=== PATIENT | female | born 1960 | race Caucasian/White ===

== ENCOUNTER 2019-04-29 14:48 | Observation (INO) ==
[2019-04-29] MEDS ORDERED: Ipratropium/Albuterol Neb 3 ML IH ONE (15:49)
--- NOTE | 2019-04-29 15:49 | Emergency Department Note ---
Disposition Clinical Impression: Acute exacerbation of chronic obstructive airways disease Disposition: Admitted As Inpatient Condition: Good Time of Disposition: 18:07 General Adult HPI - General Chief complaint: ED Shortness of Breath/Dyspnea Stated complaint: abnormal lab Time Seen by Provider: 04/29/19 15:09 Source: patient, family Limitations: no limitations Nursing Notes Reviewed: Yes Vital Signs Reviewed: Yes - History of Present Illness HPI Narrative: Female patient presenting to emergency department complaining of shortness of breath. States that she has not been feeling well for the past month. Does have a history of COPD as well as diabetes. Has been seen multiple times for this. States that she has been getting significantly more worse over the past 2 weeks. She is a smoker currently. She reports no productive sputum but an increased cough over she tries to take a deep breath. Patient was initially hypoxic on arrival here. She is requiring 2 L of oxygen to keep an actions saturation around 92%. She reports fever at home as high as 100.2. She does report occasional left-sided chest pain associated with a cough. It is not hurting at rest however she does have pain when she coughs. Pain Scale: 8 - Related Data Home Medications Medication Instructions Recorded Confirmed Unable To Obtain [Unable to Obtain] 04/29/19 04/29/19 Allergies Allergy/AdvReac Type Severity Reaction Status Date / Time ketorolac [From Toradol] Allergy Hives Verified 04/29/19 14:53 All systems ED: reviewed and negative except as stated. Review of Systems: As Per HPI Constitutional: Reports: fever. Denies: chills, weakness Respiratory: Reports: cough, dyspnea. Denies: sputum production Gastrointestinal: Denies: abdominal pain, nausea, vomiting, diarrhea Genitourinary: Denies: urgency, dysuria, frequency, hematuria Musculoskeletal: Denies: back pain, neck pain Integumentary: Denies: rash Neurological: Denies: headache, weakness, numbness, paresthesias Past Medical History - Past Medical History Attestation: Yes The following information was validated with the patient. Source: patient Medical history: Reports: COPD, diabetes, hepatitis, hypertension, liver disease Surgical history: Reports: cholecystectomy, hysterectomy, splenectomy Psychiatric history: Reports: no psych history - Social History Smoking Status: Current every day smoker Smokeless Tobacco Status: No Alcohol use: Reports: none Drug use: Reports: none, other Physical Exam - General Limitations: no limitations General appearance: alert, in no apparent distress - ENT ENT exam: normal exam, normal oropharynx, mucous membranes moist - Neck Neck exam: Present: normal inspection, full ROM, trachea midline - Chest Chest inspection: Present: normal inspection, symmetric chest wall rise - Respiratory Respiratory exam: Present: respiratory distress (Mildly tachypneic), wheezes (Expiratory), other (Decreased aeration). Absent: accessory muscle use - Cardiovascular Cardiovascular exam: Present: regular rate, normal rhythm, normal heart sounds - Abdominal Exam Abdominal exam: Present: soft, Non-Tender. Absent: tenderness, distention, guarding, rebound, rigidity, organomegaly, Ernst's sign, Rovsing's sign, tenderness at McBurney's Point - Extremities Exam Extremities exam: Present: normal inspection, full ROM, normal capillary refill. Absent: tenderness, pedal edema, calf tenderness - Back Exam Back exam: Present: normal inspection, full ROM. Absent: tenderness - Neurological Exam Neurological exam: Present: alert, oriented X3 - Psychiatric Psychiatric exam: Present: normal affect, normal mood - Skin Skin exam: Present: warm, dry, intact, normal color. Absent: rash, cyanosis, d iaphoresis Course Course Narrative: Patient does have a history of hepatitis C. This is consistent with her elevated liver enzymes and she states that this is why her pneumonia has been increased previously. Her ammonia here is 78. She reports it was 100 before. She does however have an elevated d-dimer. Secondary to her chest pain associated with the shortness of breath we will get a CTA of her chest at this time. Patient does appear to be mildly hypoxic with a COPD exacerbation. We will admit to the hospital for COPD exacerbation. We did start patient on azithromycin as well. She did receive breathing treatments and steroids. - Reevaluation(s) Reevaluation #1: No PE noted on the CTA. We will admit to the hospital for COPD exacerbation and hypoxia. Time: 17:58 Vital Signs Temperature 98.2 F 04/29/19 14:50 Pulse Rate 107 04/29/19 14:50 Respiratory Rate 20 04/29/19 14:50 Blood Pressure 133/72 04/29/19 14:50 O2 Sat by Pulse Oximetry 90 04/29/19 14:50 Temperature 98.0 F 04/30/19 10:45 Pulse Rate 88 04/30/19 10:45 Respiratory Rate 15 04/30/19 10:45 Blood Pressure 120/74 04/30/19 10:45 O2 Sat by Pulse Oximetry 92 04/30/19 10:48 Oxygen Delivery Oxygen Delivery Nasal Cannula Medical Decision Making - Medical Records Medical records reviewed: Yes I reviewed the patient's medical records. - Lab Data Lab results reviewed: Yes I reviewed the patient's lab results. Result diagrams: 04/30/19 07:20 04/30/19 07:20 Lab Results 04/29/19 04/29/19 04/29/19 Range/Units 15:35 15:35 15:35 WBC 16.2 H (4.3-11.1) K/mcL RBC 3.94 (3.82-4.97) M/mcL Hgb 12.9 (11.5-15.4) g/dL Hct 39.5 (35.3-44.9) % MCV 100.3 H (83.0-100.0) fL MCH 32.7 (28.0-33.3) pg MCHC 32.7 (31.6-35.5) g/dL RDW 15.2 H (11.5-14.5) % Plt Count 231 (140-400) K/mcL MPV 11.1 (9.4-12.4) fL Immature Gran % 0.3 (0-4) % Seg Neutrophils % 57.2 % Lymphocytes % 27.1 % Monocytes % 12.5 % Eosinophils % 1.7 % Basophils % 1.2 % Neutrophils # 9.3 H (1.6-8.9) K/mcL Lymphocytes # 4.4 (0.6-4.6) K/mcL Monocytes # 2.0 H (0.0-1.3) K/mcL Eosinophils # 0.3 (0.0-0.6) K/mcL Basophils # 0.2 (0.0-0.2) K/mcL D-Dimer (0-500) ng/mLFEU Sodium 137 (136-145) mEq/L Potassium 3.7 (3.5-5.1) mEq/L Chloride 106 (98-107) mEq/L Carbon Dioxide 28 (23-29) mEq/L BUN 11 (6-20) mg/dL Creatinine 0.64 (0.60-1.20) mg/dL Est GFR ( Amer) > 60 (> 60) Est GFR (Non-Af Amer) > 60 (> 60) BUN/Creatinine Ratio 17 (6-26) Glucose 186 H (70-105) mg/dL Est Mean Plasma Glucose mg/dl Hemoglobin A1c ( - 5.6) % Calculated Osmolality 288 (280-300) Lactic Acid (0.5-2.2) mmol/L Calcium 8.1 L (8.6-10.3) mg/dL Magnesium (1.6-2.6) mg/dL Total Bilirubin 0.9 (0.3-1.0) mg/dL AST 156 H (13-39) Units/L ALT 98 H (7-52) Units/L Alkaline Phosphatase 170 H (34-104) Units/L Ammonia 78 H (16-53) mcmol/L Troponin I < 0.03 (< 0.04) ng/mL Serum Total Protein 7.2 (6.4-8.9) g/dL Albumin 2.5 L (3.5-5.7) g/dL Globulin 4.7 H (2.4-3.5) g/dL Albumin/Globulin Ratio 0.5 L (1.1-2.2) Lipase 25 (11-82) Units/L Ethyl Alcohol (Less than 10) mg/dL 04/29/19 04/29/19 04/29/19 Range/Units 15:35 15:35 15:35 WBC (4.3-11.1) K/mcL RBC (3.82-4.97) M/mcL Hgb (11.5-15.4) g/dL Hct (35.3-44.9) % MCV (83.0-100.0) fL MCH (28.0-33.3) pg MCHC (31.6-35.5) g/dL RDW (11.5-14.5) % Plt Count (140-400) K/mcL MPV (9.4-12.4) fL Immature Gran % (0-4) % Seg Neutrophils % % Lymphocytes % % Monocytes % % Eosinophils % % Basophils % % Neutrophils # (1.6-8.9) K/mcL Lymphocytes # (0.6-4.6) K/mcL Monocytes # (0.0-1.3) K/mcL Eosinophils # (0.0-0.6) K/mcL Basophils # (0.0-0.2) K/mcL D-Dimer 969 H (0-500) ng/mLFEU Sodium (136-145) mEq/L Potassium (3.5-5.1) mEq/L Chloride (98-107) mEq/L Carbon Dioxide (23-29) mEq/L BUN (6-20) mg/dL Creatinine (0.60-1.20) mg/dL Est GFR ( Amer) (> 60) Est GFR (Non-Af Amer) (> 60) BUN/Creatinine Ratio (6-26) Glucose (70-105) mg/dL Est Mean Plasma Glucose mg/dl Hemoglobin A1c ( - 5.6) % Calculated Osmolality (280-300) Lactic Acid 1.7 (0.5-2.2) mmol/L Calcium (8.6-10.3) mg/dL Magnesium 1.8 (1.6-2.6) mg/dL Total Bilirubin (0.3-1.0) mg/dL AST (13-39) Units/L ALT (7-52) Units/L Alkaline Phosphatase (34-104) Units/L Ammonia (16-53) mcmol/L Troponin I (< 0.04) ng/mL Serum Total Protein (6.4-8.9) g/dL Albumin (3.5-5.7) g/dL Globulin (2.4-3.5) g/dL Albumin/Globulin Ratio (1.1-2.2) Lipase (11-82) Units/L Ethyl Alcohol < 10 (Less than 10) mg/dL 04/29/19 Range/Units 15:35 WBC (4.3-11.1) K/mcL RBC (3.82-4.97) M/mcL Hgb (11.5-15.4) g/dL Hct (35.3-44.9) % MCV (83.0-100.0) fL MCH (28.0-33.3) pg MCHC (31.6-35.5) g/dL RDW (11.5-14.5) % Plt Count (140-400) K/mcL MPV (9.4-12.4) fL Immature Gran % (0-4) % Seg Neutrophils % % Lymphocytes % % Monocytes % % Eosinophils % % Basophils % % Neutrophils # (1.6-8.9) K/mcL Lymphocytes # (0.6-4.6) K/mcL Monocytes # (0.0-1.3) K/mcL Eosinophils # (0.0-0.6) K/mcL Basophils # (0.0-0.2) K/mcL D-Dimer (0-500) ng/mLFEU Sodium (136-145) mEq/L Potassium (3.5-5.1) mEq/L Chloride (98-107) mEq/L Carbon Dioxide (23-29) mEq/L BUN (6-20) mg/dL Creatinine (0.60-1.20) mg/dL Est GFR ( Amer) (> 60) Est GFR (Non-Af Amer) (> 60) BUN/Creatinine Ratio (6-26) Glucose (70-105) mg/dL Est Mean Plasma Glucose 148 mg/dl Hemoglobin A1c 6.8 H ( - 5.6) % Calculated Osmolality (280-300) Lactic Acid (0.5-2.2) mmol/L Calcium (8.6-10.3) mg/dL Magnesium (1.6-2.6) mg/dL Total Bilirubin (0.3-1.0) mg/dL AST (13-39) Units/L ALT (7-52) Units/L Alkaline Phosphatase (34-104) Units/L Ammonia (16-53) mcmol/L Troponin I (< 0.04) ng/mL Serum Total Protein (6.4-8.9) g/dL Albumin (3.5-5.7) g/dL Globulin (2.4-3.5) g/dL Albumin/Globulin Ratio (1.1-2.2) Lipase (11-82) Units/L Ethyl Alcohol (Less than 10) mg/dL - Radiology Data Radiology results reviewed: Yes I reviewed the patient's radiology results. Chest X-Ray 04/29/19 15:16 IMPRESSION: No acute cardiopulmonary disease. D/ / 04/29/2019 16:19:31 Nima Chavarria MD / [facility]arter Interpreting Provider: Nima Chavarria MD Chest CTA 04/29/19 16:51 IMPRESSION: No evidence of pulmonary embolism or acute pulmonary abnormality. D/ / Gilbert Khalil MD / Gilbert Khalil MD Interpreting Provider: Gilbert Khalil MD Attestation Statement - Attestation Attestation: I have seen this patient with the resident physician, I have personally evaluated this patient. I had reviewed the chart and document dictation by the resident physician and aM in agreement with the information documented by the resident physician. Please see documentation by the resident physician for complete chart including past medical history, family medical history, review of systems, current history and physical and laboratory and imaging studies. I was present for all procedures, provided direct supervision for all procedures , was present for the entirety of all procedures and provided direct guidance during the procedures. Please see documentation by the resident physician for any procedures performed. I have reviewed all interpretations of EKGs, and reviewed all EKGs performed on patient's as well. I have also reviewed reports of imaging as provided by radiology.
[2019-04-29 15:54] LABS: Basophils # 0.2 K/mcL (0.0-0.2); Basophils % 1.2 %; Eosinophils # 0.3 K/mcL (0.0-0.6); Eosinophils % 1.7 %; Hematocrit 39.5 % (35.3-44.9); Hemoglobin 12.9 g/dL (11.5-15.4); Immature Granulocytes % 0.3 % (0-4); Lymphocytes # 4.4 K/mcL (0.6-4.6); Lymphocytes % 27.1 %; Mean Corpuscular HGB Conc 32.7 g/dL (31.6-35.5); Mean Corpuscular Hemoglobin 32.7 pg (28.0-33.3); Mean Corpuscular Volume 100.3 fL (83.0-100.0); Mean Platelet Volume 11.1 fL (9.4-12.4); Monocytes % 12.5 %; Neutrophils # 9.3 K/mcL (1.6-8.9); Platelet Count 231 K/mcL (140-400); Red Blood Count 3.94 M/mcL (3.82-4.97); Red Cell Distribution Width 15.2 % (11.5-14.5); Segmented Neutrophils % 57.2 %; White Blood Count 16.2 K/mcL (4.3-11.1)
[2019-04-29 16:07] LABS: Ethanol < 10 mg/dL (Less than 10); Magnesium 1.8 mg/dL (1.6-2.6)
[2019-04-29 16:10] LABS: Alanine Aminotransferase 98 Units/L (7-52); Albumin 2.5 g/dL (3.5-5.7); Albumin/Globulin Ratio 0.5 (1.1-2.2); Alkaline Phosphatase 170 Units/L (34-104); Aspartate Amino Transferase 156 Units/L (13-39); BUN/Creatinine Ratio 17 (6-26); Bilirubin,Total 0.9 mg/dL (0.3-1.0); Blood Urea Nitrogen 11 mg/dL (6-20); Calcium 8.1 mg/dL (8.6-10.3); Carbon Dioxide 28 mEq/L (23-29); Chloride 106 mEq/L (98-107); Globulin 4.7 g/dL (2.4-3.5); Glucose 186 mg/dL (70-105); Lipase 25 Units/L (11-82); Osmolality,Calculated 288 (280-300); Potassium 3.7 mEq/L (3.5-5.1); Sodium 137 mEq/L (136-145); Total Protein 7.2 g/dL (6.4-8.9); Troponin I < 0.03 ng/mL (< 0.04); eGFR For African Americans > 60 (> 60); eGFR For Non-African Americans > 60 (> 60)
[2019-04-29] MEDS ORDERED: methylPREDNISolone 125 MG/2 ML VIAL IVP ONE (16:38)
[2019-04-29] MEDS ORDERED: Azithromycin 500 MG in D5% in Water 250 ML IVPB ONE (16:38)
--- NOTE | 2019-04-29 16:44 | Emergency Department Note ---
Disposition Clinical Impression: Acute exacerbation of chronic obstructive airways disease Disposition: Admitted As Inpatient Condition: Good Referrals: Lorie Burk CNP [Primary Care Provider] - Forms: ED Satisfaction Letter Time of Disposition: 18:04 General Adult HPI - General Chief complaint: ED Shortness of Breath/Dyspnea Stated complaint: abnormal lab Time Seen by Provider: 04/29/19 15:09 Source: patient, family Limitations: no limitations - History of Present Illness Pain Scale: 8 - Related Data Home Medications Medication Instructions Recorded Confirmed Unable To Obtain [Unable to Obtain] 04/29/19 04/29/19 Allergies Allergy/AdvReac Type Severity Reaction Status Date / Time ketorolac [From Toradol] Allergy Hives Verified 04/29/19 14:53 Past Medical History - Past Medical History Medical history: Reports: COPD, diabetes, hepatitis, hypertension, liver disease Surgical history: Reports: cholecystectomy, hysterectomy, splenectomy Psychiatric history: Reports: no psych history - Social History Smoking Status: Current every day smoker Smokeless Tobacco Status: No Alcohol use: Reports: none Drug use: Reports: none, other Physical Exam - General Limitations: no limitations General appearance: alert, in no apparent distress Course Vital Signs Temperature 98.2 F 04/29/19 14:50 Pulse Rate 107 04/29/19 14:50 Respiratory Rate 20 04/29/19 14:50 Blood Pressure 133/72 04/29/19 14:50 O2 Sat by Pulse Oximetry 90 04/29/19 14:50 Temperature 98.2 F 04/29/19 14:50 Pulse Rate 95 04/29/19 17:00 Respiratory Rate 12 04/29/19 17:00 Blood Pressure 132/66 04/29/19 17:00 O2 Sat by Pulse Oximetry 95 04/29/19 17:00 Oxygen Delivery Oxygen Delivery Nasal Cannula Medical Decision Making - Lab Data Result diagrams: 04/29/19 15:35 04/29/19 15:35 Lab Results 04/29/19 04/29/19 04/29/19 Range/Units 15:35 15:35 15:35 WBC 16.2 H (4.3-11.1) K/mcL RBC 3.94 (3.82-4.97) M/mcL Hgb 12.9 (11.5-15.4) g/dL Hct 39.5 (35.3-44.9) % MCV 100.3 H (83.0-100.0) fL MCH 32.7 (28.0-33.3) pg MCHC 32.7 (31.6-35.5) g/dL RDW 15.2 H (11.5-14.5) % Plt Count 231 (140-400) K/mcL MPV 11.1 (9.4-12.4) fL Immature Gran % 0.3 (0-4) % Seg Neutrophils % 57.2 % Lymphocytes % 27.1 % Monocytes % 12.5 % Eosinophils % 1.7 % Basophils % 1.2 % Neutrophils # 9.3 H (1.6-8.9) K/mcL Lymphocytes # 4.4 (0.6-4.6) K/mcL Monocytes # 2.0 H (0.0-1.3) K/mcL Eosinophils # 0.3 (0.0-0.6) K/mcL Basophils # 0.2 (0.0-0.2) K/mcL D-Dimer (0-500) ng/mLFEU Sodium 137 (136-145) mEq/L Potassium 3.7 (3.5-5.1) mEq/L Chloride 106 (98-107) mEq/L Carbon Dioxide 28 (23-29) mEq/L BUN 11 (6-20) mg/dL Creatinine 0.64 (0.60-1.20) mg/dL Est GFR ( Amer) > 60 (> 60) Est GFR (Non-Af Amer) > 60 (> 60) BUN/Creatinine Ratio 17 (6-26) Glucose 186 H (70-105) mg/dL Calculated Osmolality 288 (280-300) Lactic Acid (0.5-2.2) mmol/L Calcium 8.1 L (8.6-10.3) mg/dL Magnesium (1.6-2.6) mg/dL Total Bilirubin 0.9 (0.3-1.0) mg/dL AST 156 H (13-39) Units/L ALT 98 H (7-52) Units/L Alkaline Phosphatase 170 H (34-104) Units/L Ammonia 78 H (16-53) mcmol/L Troponin I < 0.03 (< 0.04) ng/mL Serum Total Protein 7.2 (6.4-8.9) g/dL Albumin 2.5 L (3.5-5.7) g/dL Globulin 4.7 H (2.4-3.5) g/dL Albumin/Globulin Ratio 0.5 L (1.1-2.2) Lipase 25 (11-82) Units/L Ethyl Alcohol (Less than 10) mg/dL 04/29/19 04/29/19 04/29/19 Range/Units 15:35 15:35 15:35 WBC (4.3-11.1) K/mcL RBC (3.82-4.97) M/mcL Hgb (11.5-15.4) g/dL Hct (35.3-44.9) % MCV (83.0-100.0) fL MCH (28.0-33.3) pg MCHC (31.6-35.5) g/dL RDW (11.5-14.5) % Plt Count (140-400) K/mcL MPV (9.4-12.4) fL Immature Gran % (0-4) % Seg Neutrophils % % Lymphocytes % % Monocytes % % Eosinophils % % Basophils % % Neutrophils # (1.6-8.9) K/mcL Lymphocytes # (0.6-4.6) K/mcL Monocytes # (0.0-1.3) K/mcL Eosinophils # (0.0-0.6) K/mcL Basophils # (0.0-0.2) K/mcL D-Dimer 969 H (0-500) ng/mLFEU Sodium (136-145) mEq/L Potassium (3.5-5.1) mEq/L Chloride (98-107) mEq/L Carbon Dioxide (23-29) mEq/L BUN (6-20) mg/dL Creatinine (0.60-1.20) mg/dL Est GFR ( Amer) (> 60) Est GFR (Non-Af Amer) (> 60) BUN/Creatinine Ratio (6-26) Glucose (70-105) mg/dL Calculated Osmolality (280-300) Lactic Acid 1.7 (0.5-2.2) mmol/L Calcium (8.6-10.3) mg/dL Magnesium 1.8 (1.6-2.6) mg/dL Total Bilirubin (0.3-1.0) mg/dL AST (13-39) Units/L ALT (7-52) Units/L Alkaline Phosphatase (34-104) Units/L Ammonia (16-53) mcmol/L Troponin I (< 0.04) ng/mL Serum Total Protein (6.4-8.9) g/dL Albumin (3.5-5.7) g/dL Globulin (2.4-3.5) g/dL Albumin/Globulin Ratio (1.1-2.2) Lipase (11-82) Units/L Ethyl Alcohol < 10 (Less than 10) mg/dL Attestation Statement - Attestation Attestation: I have seen this patient with the resident physician, I have personally evaluated this patient. I had reviewed the chart and document dictation by the resident physician and aM in agreement with the information documented by the resident physician. Please see documentation by the resident physician for complete chart including past medical history, family medical history, review of systems, current history and physical and laboratory and imaging studies. I was present for all procedures, provided direct supervision for all procedures, was present for the entirety of all procedures and provided direct guidance during the procedures. Please see documentation by the resident physician for any procedures performed. I have reviewed all interpretations of EKGs, and reviewed all EKGs performed on patient's as well. I have also reviewed reports of imaging as provided by radiology. Patient states that she was sent in by her doctor for further evaluation of high ammonia level as well as possible pneumonia. The patient states she has had a cough with some sputum production with some increasing shortness of breath. She states she does have left sided posterior rib pain when she coughs does not have this with normal breathing. She does have a history of COPD states that it feels like her inhaler supple little bit but not significant only. She has had no documented fever but some subjective chills. She denies headache neck pain or jaw pain she denies anterior chest pain she denies significant abdominal pain nausea or vomiting. She denies urinary symptoms denies black or bloody stool or diarrhea. She states that she was recently started on Lasix for some lower extremity edema which has improved. She is a history of hepatitis C and reports that her ammonia level was recently elevated as part of why she was being sent here. She states that she is supposed to also be following up with GI, she is not currently receiving any treatment for this, states that her numbers had been relatively stable for quite a while. She is not on anything for high ammonia. She denies any focal numbness or weakness or confusion she states she just has been fatigued recently. EKG was performed which was a normal sinus rhythm, sinus tachycardia, nonspecific abnormality in the inferior leads with borderline ST depression downsloping in nature, there was no old EKG available for comparison, no evidence of abnormal intervals. No evidence of Wellens syndrome or Brugada pattern. Attempted to contact [facility], where the patient reports that she has had prior EKGs and last year they were told she had an abnormal EKG and thought she might be having a heart attack at that time. The patient states that she did not actually have a heart attack. The patient states that she has never had a EKG at this facility. Chest x-ray as interpreted by radiology showed no acute findings. Basic laboratory studies demonstrated leukocytosis. Ammonia level was 78 decreased from 100 she does not have asterixis flap nor evidence of altered mental status this is spontaneously decreasing, do not feel that there is emergent need to treat this in the ER. Renal panel within acceptable limits. Cardiac enzymes negative. LFTs demonstrated very mild transaminitis no hyperbilirubinemia. Magnesium within acceptable limits. Lactate within acceptable limits. On physical exam she had very diminished breath sounds in her lungs with wheezes, she is given steroids and breathing treatments. Secondary to her leukocytosis, with increased cough and sputum production, and a history of COPD, she was started on antibiotics as well with Zithromax for COPD exacerbation for both treatment for possible pneumonia/walking pneumonia as well as for anti-inflammatory effects. Secondary to patient's tachycardia, chest pain with cough, without chest x-ray findings of pneumonia, a d-dimer was also ordered, this was elevated at 969, therefore a CT PE protocol was ordered. The patient will be admitted to the hospital for further evaluation and management of acute COPD exacerbation with hypoxia with symptoms suggestive of acute bronchitis will undergo a CT scan to rule out pulmonary embolism as well. CT PE protocol showed no acute findings Patient was admitted to the hospital for further evaluation and management.
[2019-04-29] MEDS ORDERED: Isovue-370 500 ML BOTTLE IVP ONE (16:51)
[2019-04-29] MEDS ORDERED: Ondansetron 4 MG/2 ML VIAL IVP ONE (16:58)
[2019-04-29] MEDS ORDERED: Azithromycin 500 MG in D5% in Water 250 ML IVPB SCH (17:00)
[2019-04-29] MEDS ORDERED: Naloxone 0.4 MG/ML INJ IVP PRN (18:08)
[2019-04-29] MEDS ORDERED: cefTRIAXone 1,000 MG in Water for inj. (sterile) 10 ML IVP SCH (18:30)
--- NOTE | 2019-04-29 18:50 | Internal Med History&Physical ---
Date of Encounter: 04/29/19 Time of Encounter: 18:00 Internal Medicine - H&P: HPI Chief complaint: Coughing and shortness of breath of a couple of days History of present illness: Ms. Crenshaw is a 58 year old female with pmh of COPD, tobacco abuse, CHF, hepatitis presenting with complaints of shortness of breath and wheezing of a couple of days duration. Patient says she is a current smoker and last cigarette was around noon today. She uses inhalers as needed for shortness of breath. She had a pneumonia last April and claim she hasn't really felt completely better s moses then. She complains of a dry cough for about 1 week duration and wheezing of about 2 weeks duration. She also says she had a fever of 102 at home. She called her PCP who recommended she come to the ER. She denies any acute symptoms such as abdominal pain, nausea or vomiting. She complains of some lower extremity swelling In the Er, she was given breathing treatments and steroids and she is being admitted for further management Past Med Surg Social Fam HX - Past Medical History Medical history: COPD, diabetes, hepatitis, hypertension, liver disease Additional medical history: Hepatitis C Psychiatric history: no psych history - Past Surgical History Surgical History: cholecystectomy, hysterectomy, splenectomy - Social History Smoking Status: Current every day smoker Smokeless Tobacco Status: No Alcohol use: none Drug use: none, other Internal Medicine - H&P: Meds Unable To Obtain [Unable to Obtain] 04/29/19 [History] Allergy/AdvReac Type Severity Reaction Status Date / Time ketorolac [From Toradol] Allergy Hives Verified 04/29/19 14:53 All Systems PM: A 10-system review of systems was performed and is negative for pertinent findings except as documented above in the HPI. - Constitutional Constitutional: no chills, no fever(s), no night sweats - EENT Eyes: no change in vision, no discharge, no pain, no photophobia Ears: no ear discharge, no ear pain, no tinnitus Nose, mouth and throat: no dysphagia, no nasal discharge, no neck pain, no sore throat - Cardiovascular Cardiovascular ROS IM: dyspnea, dyspnea on exertion, no chest pain, no diaphoresis, no lightheadedness, no palpitations, no syncope - Respiratory Respiratory: cough, dyspnea, no wheezing, no excessive phlegm production - Gastrointestinal Gastrointestinal: no abdominal pain, no diarrhea, no hematemesis, no hematochezia, no melena, no nausea, no vomiting - Genitourinary Genitourinary: no change in urinary stream, no dysuria, no flank pain, no hem aturia - Musculoskeletal Musculoskeletal ROS IM: no numbness, no tingling - Integumentary Integumentary IM: no rash, no unusual bruising - Neurological Neurological ROS: no confusion, no convulsions, no focal weakness, no numbness, no tingling, no tremor(s) - Hematologic/Lymphatic Hematologic/Lymphatic: no easy bruising - Constitutional Vitals: Temp Pulse Resp BP Pulse Ox 98.2 F 95 12 132/66 95 04/29/19 14:50 04/29/19 17:00 04/29/19 17:00 04/29/19 17:00 04/29/19 17:00 Exam: NAD - Head Head exam: Present: atraumatic, normocephalic - Eye Eye exam: Present: PERRL, conjuntiva pink, sclera anicteric Pupils: Present: PERRL - Neck Neck exam general surgery: Present: supple, trachea midline. Absent: lymphad enopathy - Respiratory Respiratory exam: Present: decreased breath sounds. Absent: accessory muscle use, rales, rhonchi, wheezes - Cardiovascular Cardiovascular exam: Present: RRR, +S1, +S2. Absent: diastolic murmur, gallop, rubs, systolic murmur - GI/Abdominal GI/Abdominal exam: Present: normal bowel sounds, soft, no peritoneal signs. Absent: distended, tenderness - Extremities Exam Extremities exam: Present: pedal edema, warm, radial pulses palpable and symmetrical. Absent: calf tenderness, cyanotic - Neurological Exam Neurological exam: Present: CN II-XII intact, oriented X3, no focal deficits. Absent: pronater drift, facial droop, speech deficit - Skin Skin exam: Present: dry, intact Internal Med - H&P Results - Labs CBC & Chem 7: 04/29/19 15:35 04/29/19 15:35 Labs: Short CBC 04/29/19 Range/Units 15:35 WBC 16.2 H (4.3-11.1) K/mcL Hgb 12.9 (11.5-15.4) g/dL Hct 39.5 (35.3-44.9) % Plt Count 231 (140-400) K/mcL Neutrophils # 9.3 H (1.6-8.9) K/mcL BMP 04/29/19 15:35 Sodium 137 Potassium 3.7 Chloride 106 Carbon Dioxide 28 BUN 11 Creatinine 0.64 Glucose 186 H Calcium 8.1 L Cardiac Enzymes 04/29/19 Range/Units 15:35 Troponin I < 0.03 (< 0.04) ng/mL Liver Function 04/29/19 Range/Units 15:35 Total Bilirubin 0.9 (0.3-1.0) mg/dL AST 156 H (13-39) Units/L ALT 98 H (7-52) Units/L Alkaline Phosphatase 170 H (34-104) Units/L Albumin 2.5 L (3.5-5.7) g/dL - Impressions ITS Impressions Chest X-Ray 04/29/19 15:16 IMPRESSION: No acute cardiopulmonary disease. D/ / 04/29/2019 16:19:31 Nima Chavarria MD / veronica Interpreting Provider: Nima Chavarria MD Chest CTA 04/29/19 16:51 IMPRESSION: No evidence of pulmonary embolism or acute pulmonary abnormality. D/ / Gilbert Khalil MD / Gilbert Khalil MD Interpreting Provider: Gilbert Khalil MD - Assessment and Plan (1) Acute exacerbation of chronic obstructive airways disease Current Visit: Yes Status: Acute Assessment and plan: Pt comes in with wheezing and cough with tobacco abuse Continue on nebs, steroids and antibiotics (2) Congestive heart failure Current Visit: Yes Status: Acute Assessment and plan: Pt has lower extremity swelling. Start on lasix Obtain 2D echo Qualifiers: Qualified Code(s): I50.9 - Heart failure, unspecified (3) Diabetes mellitus Current Visit: Yes Status: Acute Assessment and plan: Continue insulin and monitor fingersticks Qualifiers: Qualified Code(s): E11.9 - Type 2 diabetes mellitus without complications (4) Transaminitis Current Visit: Yes Status: Acute Assessment and plan: Unclear etiology. reports hx of hepatitis C OBtain liver ultrasound (5) Shingles Current Visit: Yes Status: Acute Assessment and plan: Pt has dermatomal distribution pain on left chest Started on valtrex Qualifiers: Qualified Code(s): B02.9 - Zoster without complications (6) DVT prophylaxis Current Visit: Yes Status: Acute Assessment and plan: Heparin sc - Time Spent With Patient Total time spent is greater than 50% in coordination of care (as documented) at patient's floor/unit and/or counseling patient:
[2019-04-29 19:08] LABS: Bilirubin,Urine Negative (Negative); Blood,Urine Negative (Negative); Clarity,Urine Clear (Clear); Color,Urine Yellow (Yellow); Glucose,Urine (UA) Normal (Normal); Ketones,Urine Negative (Negative); Leukocyte Esterase,Urine Negative (Negative); Nitrite,Urine Negative (Negative); PH,Urine 6.5 pH Units (5.0-8.0); Protein,Urine Negative (Neg-Trace); Specific Gravity,Urine > 1.030 (1.010-1.025)
[2019-04-29] MEDS ORDERED: *HR* Dextrose 50 % in Water (Syg) 50 ML SYRINGE IVP PRN (19:12)
[2019-04-29] MEDS ORDERED: D5% in Water 1,000 ML IVC PRN (19:12)
[2019-04-29] MEDS ORDERED: Dextrose Gel 15 GM/37.5 ML TUBE PO PRN ×2 (19:12)
[2019-04-29] MEDS: Ipratropium/Albuterol Neb 3 ML IH SCH ×2 (19:51→23:12)
[2019-04-29] MEDS: Budesonide/Formoterol 160/4.5 1 PUFF INH IH SCH (19:51)
[2019-04-29 20:44] LABS: Estimated Average Glucose 148 mg/dl
[2019-04-29] MEDS: Insulin LISPRO 300 UNITS/3 ML VIAL SQ SCH (22:03)
[2019-04-29] MEDS: valACYclovir 500 MG TABLET PO SCH (22:03)
[2019-04-29] MEDS: *HR* Heparin 5,000 UNIT/ML VIAL SQ SCH (22:03)
[2019-04-29] MEDS: Furosemide 20 MG/2 ML VIAL IVP SCH (22:03)
[2019-04-29] MEDS: Acetaminophen 325 MG TABLET PO PRN (22:05)
[2019-04-30] MEDS: MethylPREDNISolone 40 MG/ML VIAL IVP SCH ×3 (00:57→16:51)
[2019-04-30] MEDS: Ipratropium/Albuterol Neb 3 ML IH SCH ×3 (03:15→11:10)
--- NOTE | 2019-04-30 07:37 | Internal Med Progress Note ---
Hospitalist Progress Note - Encounter Date of Encounter: 04/30/19 Time of Encounter: 07:30 - Subjective Interval History: No acute events overnight - Exam Vitals: Temp Pulse Resp BP Pulse Ox 98.0 F 92 16 122/67 90 04/30/19 07:11 04/30/19 07:11 04/30/19 07:11 04/30/19 07:11 04/30/19 07:11 Exam: Gen.NAD CVS. S1 S2 WNL Resp. mild wheezes GI. SOft, NT, ND, +BS Ext. 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 Start on lasix Obtain 2D echo (3) Diabetes mellitus Current Visit: Yes Status: Acute Assessment and Plan: Continue insulin and monitor fingersticks (4) Transaminitis Current Visit: Yes Status: Acute Assessment and Plan: Unclear etiology. reports hx of hepatitis C OBtain liver ultrasound (5) Shingles Current Visit: Yes Status: Acute Assessment and Plan: Pt has dermatomal distribution pain on left chest Started on valtrex (6) DVT prophylaxis Current Visit: Yes Status: Acute Assessment and Plan: Heparin sc - Time Spent with Patient Total time spent is greater than 50% in coordination of care (as documented) at patient's floor/unit and/or counseling patient: Internal Medicine: Result - Labs CBC & Chem 7: 04/30/19 07:20 04/30/19 07:20 Labs: Short CBC 04/29/19 Range/Units 15:35 WBC 16.2 H (4.3-11.1) K/mcL Hgb 12.9 (11.5-15.4) g/dL Hct 39.5 (35.3-44.9) % Plt Count 231 (140-400) K/mcL Neutrophils # 9.3 H (1.6-8.9) K/mcL BMP 04/29/19 15:35 Sodium 137 Potassium 3.7 Chloride 106 Carbon Dioxide 28 BUN 11 Creatinine 0.64 Glucose 186 H Calcium 8.1 L Cardiac Enzymes 04/29/19 04/29/19 04/30/19 Range/Units 15:35 21:28 00:04 Troponin I < 0.03 < 0.03 < 0.03 (< 0.04) ng/mL Liver Function 04/29/19 Range/Units 15:35 Total Bilirubin 0.9 (0.3-1.0) mg/dL AST 156 H (13-39) Units/L ALT 98 H (7-52) Units/L Alkaline Phosphatase 170 H (34-104) Units/L Albumin 2.5 L (3.5-5.7) g/dL Urine 04/29/19 Range/Units 18:47 Urine Color Yellow (Yellow) Urine Clarity Clear (Clear) Urine pH 6.5 (5.0-8.0) pH Units Ur Specific Cochran > 1.030 H (1.010-1.025) Urine Protein Negative (Neg-Trace) mg/dL Urine Glucose (UA) Normal (Normal) mg/dL - ABG Interpretation ABG results: PT/INR, D-dimer 969 ng/mLFEU (0-500) H 04/29/19 15:35 - Impressions Impressions Chest X-Ray 04/29/19 15:16 IMPRESSION: No acute cardiopulmonary disease. D/ / 04/29/2019 16:19:31 Nima Chavarria MD / veronica Interpreting Provider: Nima Chavarria MD Chest CTA 04/29/19 16:51 IMPRESSION: No evidence of pulmonary embolism or acute pulmonary abnormality. D/ / Gilbert Khalli MD / Gilbert Khalil MD Interpreting Provider: Gilbert Khalil MD Abdomen Ultrasound 04/29/19 19:08 IMPRESSION: 1. Limited assessment of hepatic parenchyma on ultrasound examination due to patient's body habitus and bowel gas. However, comparing to chest CT performed on 04/29/2019, findings are concerning for hepatic cirrhosis. Small amount of ascites was seen on same-day chest CT (not seen on current ultrasound). Follow-up MRI liver protocol examination may be obtained for further evaluation. 2. Status post cholecystectomy, with mild prominence of extrahepatic bowel duct. Correlate with LFTs. 3. No evidence of right hydronephrosis. The right kidney appears grossly unremarkable. D/ / 04/29/2019 22:28:30 Omar Cantu MD / veronica Interpreting Provider: Omar Cantu MD Consult Discharge Plan - Plan Referrals: Lorie Burk, PARTY PLAN SALES UNIT SALES LEADER [Primary Care Provider] - (2) Congestive heart failure Qualifiers: Qualified Code(s): I50.9 - Heart failure, unspecified (3) Diabetes mellitus Qualifiers: Qualified Code(s): E11.9 - Type 2 diabetes mellitus without complications (5) Shingles Qualifiers: Qualified Code(s): B02.9 - Zoster without complications
[2019-04-30] MEDS ORDERED: Perflutren Lipid Microsphere 1.3 ML in 0.9 % Sodium Chloride 8.7 ML IVP ONE (07:51)
[2019-04-30 07:59] LABS: BUN/Creatinine Ratio 27 (6-26); Blood Urea Nitrogen 20 mg/dL (6-20); Calcium 8.4 mg/dL (8.6-10.3); Carbon Dioxide 29 mEq/L (23-29); Chloride 103 mEq/L (98-107); Glucose 329 mg/dL (70-105); Osmolality,Calculated 297 (280-300); Phosphorous 2.7 mg/dL (2.7-4.5); Potassium 4.8 mEq/L (3.5-5.1); Sodium 136 mEq/L (136-145); eGFR For African Americans > 60 (> 60); eGFR For Non-African Americans > 60 (> 60)
[2019-04-30 08:59] LABS: Basophils % 0.2 %; Hematocrit 42.5 % (35.3-44.9); Immature Granulocytes % 0.4 % (0-4); Lymphocytes # 1.9 K/mcL (0.6-4.6); Lymphocytes % 15.7 %; Mean Corpuscular HGB Conc 32.9 g/dL (31.6-35.5); Mean Corpuscular Hemoglobin 33.1 pg (28.0-33.3); Mean Corpuscular Volume 100.5 fL (83.0-100.0); Mean Platelet Volume 11.5 fL (9.4-12.4); Monocytes # 0.3 K/mcL (0.0-1.3); Monocytes % 2.4 %; Neutrophils # 9.8 K/mcL (1.6-8.9); Platelet Count 242 K/mcL (140-400); Red Blood Count 4.23 M/mcL (3.82-4.97); Segmented Neutrophils % 81.3 %
[2019-04-30] MEDS: Furosemide 20 MG/2 ML VIAL IVP SCH ×2 (09:32→16:51)
[2019-04-30] MEDS: Insulin LISPRO 300 UNITS/3 ML VIAL SQ SCH ×3 (09:32→16:52)
[2019-04-30] MEDS: valACYclovir 500 MG TABLET PO SCH ×3 (09:32→21:15)
[2019-04-30] MEDS: *HR* Heparin 5,000 UNIT/ML VIAL SQ SCH ×2 (09:32→16:43)
[2019-04-30] MEDS: Acetaminophen 325 MG TABLET PO PRN ×2 (09:36→18:23)
[2019-04-30 09:50] LABS: Albumin 2.8 g/dL (3.5-5.7); Albumin/Globulin Ratio 0.5 (1.1-2.2); Bilirubin,Direct 0.4 mg/dL (0.0-0.2); Bilirubin,Indirect 0.6 mg/dL (0.0-1.2); Globulin 5.6 g/dL (2.4-3.5); Total Protein 8.4 g/dL (6.4-8.9)
[2019-04-30] MEDS: Azithromycin 250 MG TABLET PO SCH (10:01)
[2019-04-30 10:10] LABS: Hepatitis B Surface Antigen Nonreactive (Nonreactive)
[2019-04-30 10:42] LABS: Hepatitis A Antibody IgM Nonreactive (Nonreactive)
[2019-04-30] MEDS: Budesonide/Formoterol 160/4.5 1 PUFF INH IH SCH ×2 (11:10→19:31)
[2019-04-30 12:41] LABS: Hepatitis B Core IgM Reactive (Nonreactive)
[2019-04-30] MEDS ORDERED: Ipratropium/Albuterol Neb 3 ML IH PRN (13:33)
--- NOTE | 2019-04-30 13:55 | Electrocardiograph Report ---
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
[2019-04-30 13:59] LABS: Hepatitis C Virus Antibody Reactive (Nonreactive)
[2019-04-30] MEDS: Gabapentin 400 MG CAPSULE PO SCH ×2 (15:12→21:15)
[2019-04-30] MEDS: traMADol 50 MG TABLET PO PRN ×2 (15:12→21:17)
[2019-04-30] MEDS ORDERED: Azithromycin 500 MG in D5% in Water 250 ML IVPB SCH (17:00)
[2019-04-30 18:06] LABS: Adenovirus Not Detected (Not Detect); Bordetella Pertussis Not Detected (Not Detect); Chlamydophila pneumoniae Not Detected (Not Detect); Coronavirus 229E Not Detected (Not Detect); Coronavirus HKU1 Not Detected (Not Detect); Coronavirus NL63 Not Detected (Not Detect); Coronavirus OC43 Not Detected (Not Detect); Human Metapneumovirus Not Detected (Not Detect); Human Rhinovirus/Enterovirus Not Detected (Not Detect); Influenza A Subtype 2009 H1 Not Detected (Not Detect); Influenza A Untypeable Not Detected (Not Detect); Influenza B Not Detected (Not Detect); Mycoplasma pneumoniae Not Detected (Not Detect); Parainfluenza Virus 1 Not Detected (Not Detect); Parainfluenza Virus 2 Not Detected (Not Detect); Parainfluenza Virus 3 Not Detected (Not Detect); Parainfluenza Virus 4 Not Detected (Not Detect); Respiratory Syncytial Virus Not Detected (Not Detect)
[2019-04-30 18:16] LABS: ABG Base Excess 5 mEq/L (-2 to 3); ABG HCO3 32 mEq/L (21-27); ABG Oxygen Saturation 90 % (95-98); ABG PCO2 54 mmHg (35-45); ABG PH 7.38 pH Units (7.32-7.45); ABG PO2 61 mmHg (85-104); ABG TCO2 34 mEq/L (20-26)
[2019-05-01] MEDS: MethylPREDNISolone 40 MG/ML VIAL IVP SCH (01:09)
[2019-05-01] MEDS: traMADol 50 MG TABLET PO PRN (03:22)
[2019-05-01] MEDS: Nicotine 14 MG PATCH.TD24 TD SCH ×2 (05:53→09:06)
[2019-05-01] MEDS: *HR* Heparin 5,000 UNIT/ML VIAL SQ SCH (05:54)
[2019-05-01 06:44] LABS: Basophils % 0.1 %
[2019-05-01 06:46] LABS: Hematocrit 40.7 % (35.3-44.9); Hemoglobin 13.6 g/dL (11.5-15.4); Immature Granulocytes % 1.1 % (0-4); Lymphocytes # 2.5 K/mcL (0.6-4.6); Lymphocytes % 9.2 %; Mean Corpuscular HGB Conc 33.4 g/dL (31.6-35.5); Mean Corpuscular Hemoglobin 32.8 pg (28.0-33.3); Mean Corpuscular Volume 98.1 fL (83.0-100.0); Mean Platelet Volume 11.6 fL (9.4-12.4); Monocytes # 2.1 K/mcL (0.0-1.3); Monocytes % 7.5 %; Neutrophils # 22.7 K/mcL (1.6-8.9); Platelet Count 261 K/mcL (140-400); Red Blood Count 4.15 M/mcL (3.82-4.97); Red Cell Distribution Width 14.8 % (11.5-14.5); Segmented Neutrophils % 82.1 %; White Blood Count 27.6 K/mcL (4.3-11.1)
[2019-05-01 07:05] LABS: BUN/Creatinine Ratio 35 (6-26); Blood Urea Nitrogen 25 mg/dL (6-20); Calcium 8.3 mg/dL (8.6-10.3); Carbon Dioxide 29 mEq/L (23-29); Chloride 99 mEq/L (98-107); Glucose 346 mg/dL (70-105); Magnesium 2.1 mg/dL (1.6-2.6); Osmolality,Calculated 298 (280-300); Phosphorous 3.5 mg/dL (2.7-4.5); Potassium 4.6 mEq/L (3.5-5.1); Sodium 135 mEq/L (136-145); eGFR For African Americans > 60 (> 60); eGFR For Non-African Americans > 60 (> 60)
[2019-05-01 07:18] LABS: Platelet Estimate Normal (Normal)
[2019-05-01] MEDS: Budesonide/Formoterol 160/4.5 1 PUFF INH IH SCH (07:26)
[2019-05-01] MEDS ORDERED: Acetaminophen 325 MG TABLET PO PRN (08:41)
[2019-05-01] MEDS ORDERED: traMADol 50 MG TABLET PO PRN (08:41)
[2019-05-01] MEDS ORDERED: predniSONE 20 MG TABLET PO SCH (09:00)
[2019-05-01] MEDS: valACYclovir 500 MG TABLET PO SCH (09:05)
[2019-05-01] MEDS: Azithromycin 250 MG TABLET PO SCH (09:05)
[2019-05-01] MEDS: Gabapentin 400 MG CAPSULE PO SCH (09:06)
[2019-05-01] MEDS: Furosemide 20 MG/2 ML VIAL IVP SCH (09:06)
[2019-05-01] MEDS: Insulin LISPRO 300 UNITS/3 ML VIAL SQ SCH ×2 (09:07→12:10)
[2019-05-01 11:06] VITALS: BP 169/76
--- NOTE | 2019-05-01 12:30 | Gastroenterology Consult Note ---
<Mary Rowe - Last Filed: 05/01/19 12:27> Date of Encounter: 05/01/19 Time of Encounter: 12:15 - Assessment and plan (1) Transaminitis Status: Acute Assessment and plan: No s/sx of jaundice, she denies any abdominal pain, nausea, or vomiting. Transaminitis due to acute hep B and chronic hep c. She is being worked up as an outpatient for antiviral treatment. She has an appointment with Dr Zuluaga on 05/07/19. She is advised to keep this appointment. OK to discharge home per GI standpoint at this time. - Time Spent With Patient Total time spent is greater than 50% in coordination of care (as documented) at patient's floor/unit and/or counseling patient: GI History of Present Illness - Data of Consult Patient: known to practice within the last 3 years Consult date: 05/01/19 Requesting Physician: Lillian Duran - Consult Narrative Reason for consult: hep b and hep c History of present illness: Ms. Crenshaw is a 58 year old female with pmh of COPD, tobacco abuse, CHF, and hepatitis B and C. She presented with complaints of shortness of breath and wheezing of a couple of days duration. Patient says she is a current smoker. She complains of a dry cough for about 1 week duration and wheezing of about 2 weeks duration. She also says she had a fever of 102 at home. She called her PCP who recommended she come to the ER. She denies any acute symptoms such as abdominal pain, nausea or vomiting. She complains of some lower extremity swelling. In the Er, she was given breathing treatments and steroids and she is being admitted for further management. Lab workup showed elevated LFTs which are trending down. She does have a positive hep B core IgM and hepatitis C antibody screen. She has seen Dr Zuluaga as an outpatient in 01/15 and is being worked up for Hepatitis treatment. Past Med Surg Social Fam HX - Past Medical History Medical history: COPD, diabetes, hepatitis, hypertension, liver disease Additional medical history: Hepatitis C Psychiatric history: no psych history - Past Surgical History Surgical History: cholecystectomy, hysterectomy, splenectomy - Social History Smoking Status: Current every day smoker Packs per day: 1/2 Smokeless Tobacco Status: No Alcohol use: none Drug use: none, other - Family History Mother Hx Family Endocrine Disorder: Yes Review of Systems: GI: as per [place] GENERAL: denies fever, has some chills EYES: denies yellow discoloration ENT: denies pain with swallowing or difficulty swallowing CARDIO: denies chest pain, palpitations RESP: see HPI : denies change in color of urine NEURO: weakness HEME: Denies any bruising MS: denies joint pain, joint swelling or back pain. DERM: denies rash or itching PSYCH: Denies history of anxiety or depression - Constitutional Vitals: Temp Pulse Resp BP Pulse Ox 98.3 F 109 17 169/76 91 05/01/19 11:04 05/01/19 11:04 05/01/19 11:04 05/01/19 11:04 05/01/19 11:04 Exam: CONSTITUTIONAL:alert, no acute distress.HEAD:normocephalic.EYES:no jaundice.NECK:no obvious swelling.HEART:regular rate and rhythm, no murmurs.LUNGS:bilateral poor air entry.ABDOMEN:non distended, soft, non tender, no masses palpable, no organomegaly, obese.RECTAL EXAM:Deferred.EXTREMITIES:no clubbing, cyanosis or edema.SKIN:no stigmata of chronic liver disease.NEUROLOGIC:no obvious focal defect. Results - Labs CBC & Chem 7: 05/01/19 04:49 05/01/19 04:49 Labs: Last Result 05/01/19 04:49 Calcium 8.3 L Entire Visit 05/01/19 04:49 Hgb 13.6 Hct 40.7 - ABG ABG results: ABG ABG pH 7.38 pH Units (7.32-7.45) 04/30/19 18:13 ABG pCO2 54 mmHg (35-45) H 04/30/19 18:13 ABG pO2 61 mmHg (85-104) L 04/30/19 18:13 ABG O2 Saturation 90 % (95-98) L 04/30/19 18:13 PT/INR, D-dimer 969 ng/mLFEU (0-500) H 04/29/19 15:35 Consult Discharge Plan - Plan Instructions: Prednisone (By mouth), Azithromycin (By mouth), Valacyclovir (By mouth), Chronic Obstructive Pulmonary Disease (DC) Referrals: Lorie Burk, AUDIO VISUAL TECHNICIAN [Primary Care Provider] - (Called and left message with name and birthdate) <Constantin Zuluaga - Last Filed: 05/07/19 03:35> Date of Encounter: 05/01/19 - Time Spent With Patient Total time spent is greater than 50% in coordination of care (as documented) at patient's floor/unit and/or counseling patient: GI History of Present Illness - Data of Consult Requesting Physician: Lillian Duran - Consult Narrative History of present illness: Ms. Crenshaw is a 58 year old female - Constitutional Vitals: Temp Pulse Resp BP Pulse Ox 98.3 F 109 17 169/76 91 05/01/19 11:04 05/01/19 11:04 05/01/19 11:04 05/01/19 11:04 05/01/19 11:04 Results - Labs CBC & Chem 7: 05/01/19 04:49 05/01/19 04:49 - ABG ABG results: ABG ABG pH 7.38 pH Units (7.32-7.45) 04/30/19 18:13 ABG pCO2 54 mmHg (35-45) H 04/30/19 18:13 ABG pO2 61 mmHg (85-104) L 04/30/19 18:13 ABG O2 Saturation 90 % (95-98) L 04/30/19 18:13 PT/INR, D-dimer 969 ng/mLFEU (0-500) H 04/29/19 15:35 - Attending Attestation Patient admitted with what suggests acute hepatitis B and chronic hepatitis C. As above. Plan outpatient workup. Can discharge once patient able to take and hold down oral intake-clear liquid I have personally performed a face to face evaluation on this patient. I have reviewed and agree with the care plan. History and Exam by me shows:
--- NOTE | 2019-05-01 12:54 | Discharge Summary ---
Date of Encounter: 05/01/19 Time of Encounter: 12:00 - Discharge Diagnosis (1) Acute exacerbation of chronic obstructive airways disease Priority: Primary Status: Acute Assessment and Plan: 58 year old female with pmh of COPD, tobacco abuse, CHF, hepatitis presenting with complaints of shortness of breath and wheezing of a couple of days duration. Patient says she is a current smoker and last cigarette was around noon today. She uses inhalers as needed for shortness of breath. She had a pneumonia last April and claim she hasn't really felt completely better since then. She complains of a dry cough for about 1 week duration and wheezing of about 2 weeks duration. She also says she had a fever of 102 at home. She called her PCP who recommended she come to the ER. She comes in with COPD exacerbation with wheezing and cough with tobacco abuse. She improved on nebs, steroids and antibiotics. She was noted to have transaminitis and a hepatitis panel came back positive for IGM core hep B and HEp C antibodies. She was seen by GI and will follow up with them as an outpatient for treatment. She was discharged on a course of steroids, and valtrex for shingles (2) Congestive heart failure Priority: Primary Status: Acute Qualifiers: Qualified Code(s): I50.9 - Heart failure, unspecified (3) Diabetes mellitus Priority: Primary Status: Acute Qualifiers: Qualified Code(s): E11.9 - Type 2 diabetes mellitus without complications (4) Transaminitis Priority: Primary Status: Acute (5) Shingles Priority: Primary Status: Acute Qualifiers: Qualified Code(s): B02.9 - Zoster without complications (6) DVT prophylaxis Priority: Primary Status: Acute Hospital course: Ms. Crenshaw is a 58 year old female - Time Spent with Patient Total time spent providing and/or coordinating discharge services: - Discharge Medications Prescriptions: No Action Gabapentin [Neurontin] 800 mg PO TID Albuterol Neb [Proventil Neb] 2.5 mg IH TID PRN PRN Reason: Shortness Of Breath Albuterol Sulfate [Proventil Inhaler] 2 puff IH Q6HR PRN PRN Reason: Shortness Of Breath Amlodipine Besylate/Benazepril [Lotrel 5-10 mg Capsule] 1 cap PO DAILY Budesonide/Formoterol 160/4.5 [Symbicort 160/4.5] 2 puff IH BID Furosemide [Lasix] 40 mg PO DAILY Lactulose 30 ml PO BID PRN PRN Reason: Constipation Lidocaine 1 patch TD DAILY Metformin HCl [Glucophage Xr] 500 mg PO DAILY Potassium Chloride [Klor-Con 10] 10 meq PO DAILY Varenicline Tartrate [Chantix Starting Month ] 1 tab PO PER PKG DI Home Medications: Albuterol Neb [Proventil Neb] 2.5 mg IH TID PRN 04/30/19 [History] Albuterol Sulfate [Proventil Inhaler] 2 puff IH Q6HR PRN 04/30/19 [History] Amlodipine Besylate/Benazepril [Lotrel 5-10 mg Capsule] 1 cap PO DAILY 04/30/19 [History] Budesonide/Formoterol 160/4.5 [Symbicort 160/4.5] 2 puff IH BID 04/30/19 [History] Furosemide [Lasix] 40 mg PO DAILY 04/30/19 [History] Gabapentin [Neurontin] 800 mg PO TID 04/30/19 [History] Lactulose 30 ml PO BID PRN 04/30/19 [History] Lidocaine 1 patch TD DAILY 04/30/19 [History] Metformin HCl [Glucophage Xr] 500 mg PO DAILY 04/30/19 [History] Potassium Chloride [Klor-Con 10] 10 meq PO DAILY 04/30/19 [History] Varenicline Tartrate [Chantix Starting ] 1 tab PO PER PKG DI 04/30/19 [History] Allergies/Adverse Reactions: Allergy/AdvReac Type Severity Reaction Status Date / Time ketorolac [From Toradol] Allergy Hives Verified 04/30/19 21:47 Date of admission: 04/29/19 18:41 Primary care physician: Lorie Burk CNP Consults: 04/30/19 08:42 Consult to Nurse Navigator [CONS] Routine Comment: copd 05/01/19 09:41 Consult to Gastroenterology [CONS] Routine Consulting Provider: Gastroenterregina Ziegler Reason for Consult: query acute hep b infection Call Completed: Yes - Constitutional Vitals: Temp Pulse Resp BP Pulse Ox 98.3 F 109 17 169/76 91 05/01/19 11:04 05/01/19 11:04 05/01/19 11:04 05/01/19 11:04 05/01/19 11:04 Exam: Gen.NAD CVS. S1 S2 WNL Resp. CTAB GI. SOft, NT, ND, +BS Ext. 2+pulses GARAGE HELPER GCS 15/15 - Patient Status Disposition: Home, Self-Care Condition: Good - Discharge Instructions Follow Up With: Lorie Burk WELDING TECHNICIAN [Primary Care Provider] -
== END 2019-05-01 15:00 | disposition home or self-care (01) ==
LOC: EMEROOARM 14:48 → 2ANU 14:48
PROVIDERS: ADMIT Internal Medicine Nephrology; ATTEND Internal Medicine Nephrology

== ENCOUNTER 2019-09-28 04:28 | Inpatient (IN) ==
[2019-09-28] MEDS ORDERED: *HR* Promethazine 25 MG/ML VIAL IVP PRN (07:13)
[2019-09-28] MEDS ORDERED: Naloxone 0.4 MG/ML INJ IVP PRN (07:13)
[2019-09-28] MEDS ORDERED: *HR* Heparin 5,000 UNIT/ML VIAL IVP PRN ×2 (07:45)
[2019-09-28 08:11] LABS: Basophils # 0.1 K/mcL (0.0-0.2); Basophils % 1.2 %; Eosinophils # 0.2 K/mcL (0.0-0.6); Eosinophils % 1.8 %; Hematocrit 45.5 % (35.3-44.9); Hemoglobin 15.6 g/dL (11.5-15.4); Immature Granulocytes % 0.3 % (0-4); Lymphocytes # 4.6 K/mcL (0.6-4.6); Lymphocytes % 38.2 %; Mean Corpuscular HGB Conc 34.3 g/dL (31.6-35.5); Mean Corpuscular Volume 96.2 fL (83.0-100.0); Monocytes # 1.5 K/mcL (0.0-1.3); Monocytes % 12.5 %; Neutrophils # 5.5 K/mcL (1.6-8.9); Platelet Count 241 K/mcL (140-400); Red Blood Count 4.73 M/mcL (3.82-4.97); Red Cell Distribution Width 15.1 % (11.5-14.5)
[2019-09-28 08:15] LABS: Heparin anti-factor XA UFH 0.21 IU/mL (0.30-0.70); INR 1.2; Prothrombin Time 14.1 Seconds (9.4-12.1)
[2019-09-28 08:36] LABS: Alanine Aminotransferase 42 Units/L (7-52); Albumin 2.7 g/dL (3.5-5.7); Albumin/Globulin Ratio 0.5 (1.1-2.2); Alkaline Phosphatase 120 Units/L (34-104); Aspartate Amino Transferase 74 Units/L (13-39); BUN/Creatinine Ratio 27 (6-26); Bilirubin,Total 1.4 mg/dL (0.3-1.0); Blood Urea Nitrogen 24 mg/dL (6-20); Carbon Dioxide 26 mEq/L (23-29); Chloride 105 mEq/L (98-107); Glucose 129 mg/dL (70-105); Magnesium 1.8 mg/dL (1.6-2.6); Osmolality,Calculated 290 (280-300); Phosphorous 4.1 mg/dL (2.7-4.5); Sodium 137 mEq/L (136-145); Total Protein 7.7 g/dL (6.4-8.9); Troponin I 0.13 ng/mL (< 0.04); eGFR For African Americans > 60 (> 60); eGFR For Non-African Americans > 60 (> 60)
[2019-09-28] MEDS: Lactulose Oral Soln 20 GM/30 ML UDC PO SCH ×5 (09:28→19:55)
[2019-09-28] MEDS: Heparin 25,000 UNIT/250 ML D5W 25,000 UNIT/250 ML IV.SOLN IVC SCH (09:40)
[2019-09-28] MEDS: Metoprolol XL (24 HR) Succ 25 MG TAB.ER.24H PO SCH (13:33)
[2019-09-29 05:51] LABS: Basophils # 0.2 K/mcL (0.0-0.2); Basophils % 1.3 %; Eosinophils # 0.2 K/mcL (0.0-0.6); Eosinophils % 2.1 %; Hematocrit 46.5 % (35.3-44.9); Hemoglobin 15.2 g/dL (11.5-15.4); Immature Granulocytes % 0.1 % (0-4); Lymphocytes # 4.2 K/mcL (0.6-4.6); Lymphocytes % 36.3 %; Mean Corpuscular HGB Conc 32.7 g/dL (31.6-35.5); Mean Corpuscular Hemoglobin 32.7 pg (28.0-33.3); Mean Platelet Volume 10.5 fL (9.4-12.4); Monocytes # 1.9 K/mcL (0.0-1.3); Monocytes % 16.3 %; Neutrophils # 5.1 K/mcL (1.6-8.9); Platelet Count 258 K/mcL (140-400); Red Blood Count 4.65 M/mcL (3.82-4.97); Red Cell Distribution Width 15.6 % (11.5-14.5); Segmented Neutrophils % 43.9 %; White Blood Count 11.5 K/mcL (4.3-11.1)
[2019-09-29 06:10] LABS: Albumin 2.7 g/dL (3.5-5.7); Albumin/Globulin Ratio 0.5 (1.1-2.2); Bilirubin,Total 1.7 mg/dL (0.3-1.0); Calcium 8.6 mg/dL (8.6-10.3); Chol/HDL Ratio 3.1 (0-4.9); Globulin 5.2 g/dL (2.4-3.5); Potassium 5.6 mEq/L (3.5-5.1); Total Protein 7.9 g/dL (6.4-8.9)
[2019-09-29] MEDS: Heparin 25,000 UNIT/250 ML D5W 25,000 UNIT/250 ML IV.SOLN IVC SCH (06:18)
[2019-09-29] MEDS: Metoprolol XL (24 HR) Succ 25 MG TAB.ER.24H PO SCH (08:26)
[2019-09-29] MEDS: Lactulose Oral Soln 20 GM/30 ML UDC PO SCH ×4 (08:26→20:45)
[2019-09-29] MEDS: Gabapentin 400 MG CAPSULE PO SCH ×3 (08:27→20:45)
[2019-09-29] MEDS ORDERED: Valsartan 160 MG TABLET PO SCH (09:00)
[2019-09-29] MEDS ORDERED: Furosemide 40 MG TABLET PO SCH (09:00)
[2019-09-29] MEDS ORDERED: Dextrose Gel 15 GM/37.5 ML TUBE PO PRN ×2 (10:05)
[2019-09-29] MEDS ORDERED: *HR* Dextrose 50 % in Water (Syg) 50 ML SYRINGE IVP PRN (10:05)
[2019-09-29] MEDS ORDERED: D5% in Water 1,000 ML IVC PRN (10:05)
[2019-09-29] MEDS: Budesonide/Formoterol 160/4.5 1 PUFF INH IH SCH ×2 (10:48→20:50)
[2019-09-29] MEDS: Insulin LISPRO 300 UNITS/3 ML VIAL SQ SCH ×3 (12:14→21:11)
[2019-09-30 01:27] LABS: Hemoglobin 14.9 g/dL (11.5-15.4); Mean Corpuscular HGB Conc 34.7 g/dL (31.6-35.5); Mean Corpuscular Hemoglobin 32.9 pg (28.0-33.3); Mean Corpuscular Volume 94.9 fL (83.0-100.0); Mean Platelet Volume 10.8 fL (9.4-12.4); Platelet Count 255 K/mcL (140-400); Red Blood Count 4.53 M/mcL (3.82-4.97)
[2019-09-30 01:30] LABS: White Blood Count 18.5 K/mcL (4.3-11.1)
[2019-09-30] MEDS: Heparin 25,000 UNIT/250 ML D5W 25,000 UNIT/250 ML IV.SOLN IVC SCH ×2 (01:39→19:15)
[2019-09-30 01:44] LABS: Albumin 2.4 g/dL (3.5-5.7); Albumin/Globulin Ratio 0.5 (1.1-2.2); Bilirubin,Total 1.4 mg/dL (0.3-1.0); Calcium 8.1 mg/dL (8.6-10.3); Globulin 4.8 g/dL (2.4-3.5); Potassium 5.7 mEq/L (3.5-5.1); Total Protein 7.2 g/dL (6.4-8.9)
[2019-09-30] MEDS: Budesonide/Formoterol 160/4.5 1 PUFF INH IH SCH ×2 (07:36→22:17)
[2019-09-30] MEDS: Insulin LISPRO 300 UNITS/3 ML VIAL SQ SCH ×4 (08:05→20:18)
[2019-09-30] MEDS: Lactulose Oral Soln 20 GM/30 ML UDC PO SCH ×4 (08:13→20:14)
[2019-09-30] MEDS: Gabapentin 400 MG CAPSULE PO SCH ×3 (08:17→20:37)
[2019-09-30] MEDS: Metoprolol XL (24 HR) Succ 25 MG TAB.ER.24H PO SCH (08:17)
[2019-09-30 16:43] LABS: Bilirubin,Urine Small (Negative); Blood,Urine Negative (Negative); Clarity,Urine Clear (Clear); Color,Urine Dark Yellow (Yellow); Glucose,Urine (UA) Normal (Normal); Ketones,Urine Negative (Negative); Leukocyte Esterase,Urine Negative (Negative); Nitrite,Urine Negative (Negative); Protein,Urine Negative (Neg-Trace); Specific Gravity,Urine > 1.030 (1.010-1.025); Urobilinogen,Urine Normal (Normal)
[2019-09-30] MEDS ORDERED: 0.9 % Sodium Chloride 1,000 ML IVC ONE (17:06)
[2019-09-30 17:11] LABS: Calcium 7.6 mg/dL (8.6-10.3); Potassium 4.9 mEq/L (3.5-5.1)
[2019-10-01 05:31] LABS: Albumin 2.4 g/dL (3.5-5.7); Albumin/Globulin Ratio 0.5 (1.1-2.2); Bilirubin,Total 1.6 mg/dL (0.3-1.0); Calcium 7.6 mg/dL (8.6-10.3); Globulin 4.9 g/dL (2.4-3.5); Potassium 5.3 mEq/L (3.5-5.1); Total Protein 7.3 g/dL (6.4-8.9)
[2019-10-01] MEDS: Budesonide/Formoterol 160/4.5 1 PUFF INH IH SCH ×2 (08:04→19:36)
[2019-10-01] MEDS: Insulin LISPRO 300 UNITS/3 ML VIAL SQ SCH ×4 (08:35→21:30)
[2019-10-01] MEDS: Lactulose Oral Soln 20 GM/30 ML UDC PO SCH ×4 (08:43→21:34)
[2019-10-01] MEDS: Gabapentin 400 MG CAPSULE PO SCH ×3 (08:59→21:34)
[2019-10-01 16:50] LABS: BUN/Creatinine Ratio 33 (6-26); Blood Urea Nitrogen 33 mg/dL (6-20); Calcium 7.4 mg/dL (8.6-10.3); Carbon Dioxide 24 mEq/L (23-29); Chloride 105 mEq/L (98-107); Glucose 154 mg/dL (70-105); Osmolality,Calculated 290 (280-300); Potassium 4.1 mEq/L (3.5-5.1); Sodium 135 mEq/L (136-145); eGFR For African Americans > 60 (> 60); eGFR For Non-African Americans 57 (> 60)
[2019-10-01] MEDS: *HR* Heparin 5,000 UNIT/ML VIAL SQ SCH (18:35)
[2019-10-02 03:40] LABS: Hematocrit 37.8 % (35.3-44.9); Mean Corpuscular HGB Conc 32.8 g/dL (31.6-35.5); Mean Corpuscular Hemoglobin 33.1 pg (28.0-33.3); Mean Corpuscular Volume 100.8 fL (83.0-100.0); Mean Platelet Volume 10.3 fL (9.4-12.4); Platelet Count 203 K/mcL (140-400); Red Blood Count 3.75 M/mcL (3.82-4.97); Red Cell Distribution Width 14.7 % (11.5-14.5); White Blood Count 19.3 K/mcL (4.3-11.1)
[2019-10-02 03:42] LABS: Hemoglobin 12.4 g/dL (11.5-15.4)
[2019-10-02 03:59] LABS: BUN/Creatinine Ratio 33 (6-26); Blood Urea Nitrogen 23 mg/dL (6-20); Calcium 7.4 mg/dL (8.6-10.3); Carbon Dioxide 27 mEq/L (23-29); Chloride 106 mEq/L (98-107); Glucose 116 mg/dL (70-105); Osmolality,Calculated 291 (280-300); Sodium 138 mEq/L (136-145); eGFR For African Americans > 60 (> 60); eGFR For Non-African Americans > 60 (> 60)
[2019-10-02] MEDS: *HR* Heparin 5,000 UNIT/ML VIAL SQ SCH ×2 (05:59→17:02)
[2019-10-02] MEDS: Budesonide/Formoterol 160/4.5 1 PUFF INH IH SCH ×2 (07:51→22:24)
[2019-10-02] MEDS: Insulin LISPRO 300 UNITS/3 ML VIAL SQ SCH ×4 (09:49→20:39)
[2019-10-02] MEDS: Lactulose Oral Soln 20 GM/30 ML UDC PO SCH ×4 (09:49→20:10)
[2019-10-02] MEDS: Gabapentin 400 MG CAPSULE PO SCH ×3 (09:50→20:10)
[2019-10-02] MEDS: Heparin 25,000 UNIT/250 ML D5W 25,000 UNIT/250 ML IV.SOLN IVC SCH (21:06)
[2019-10-03] MEDS: *HR* Heparin 5,000 UNIT/ML VIAL SQ SCH (05:58)
[2019-10-03] MEDS: Budesonide/Formoterol 160/4.5 1 PUFF INH IH SCH (07:40)
[2019-10-03] MEDS: Insulin LISPRO 300 UNITS/3 ML VIAL SQ SCH ×2 (08:22→11:44)
[2019-10-03] MEDS: Gabapentin 400 MG CAPSULE PO SCH (08:23)
[2019-10-03] MEDS: Lactulose Oral Soln 20 GM/30 ML UDC PO SCH ×2 (08:23→13:04)
[2019-10-03 09:40] LABS: Basophils # 0.1 K/mcL (0.0-0.2); Basophils % 0.8 %; Eosinophils # 0.4 K/mcL (0.0-0.6); Eosinophils % 2.7 %; Hematocrit 42.2 % (35.3-44.9); Immature Granulocytes % 0.4 % (0-4); Lymphocytes # 3.3 K/mcL (0.6-4.6); Lymphocytes % 24.8 %; Mean Corpuscular HGB Conc 34.8 g/dL (31.6-35.5); Mean Corpuscular Hemoglobin 34.2 pg (28.0-33.3); Mean Corpuscular Volume 98.1 fL (83.0-100.0); Mean Platelet Volume 10.3 fL (9.4-12.4); Monocytes # 1.7 K/mcL (0.0-1.3); Monocytes % 12.8 %; Neutrophils # 7.7 K/mcL (1.6-8.9); Platelet Count 233 K/mcL (140-400); Red Cell Distribution Width 15.4 % (11.5-14.5); Segmented Neutrophils % 58.5 %; White Blood Count 13.1 K/mcL (4.3-11.1)
[2019-10-03 09:53] LABS: Hemoglobin 14.7 g/dL (11.5-15.4)
[2019-10-03 09:59] LABS: Alanine Aminotransferase 31 Units/L (7-52); Albumin 2.5 g/dL (3.5-5.7); Albumin/Globulin Ratio 0.5 (1.1-2.2); Alkaline Phosphatase 144 Units/L (34-104); Aspartate Amino Transferase 62 Units/L (13-39); BUN/Creatinine Ratio 17 (6-26); Bilirubin,Total 0.8 mg/dL (0.3-1.0); Blood Urea Nitrogen 11 mg/dL (6-20); Calcium 8.1 mg/dL (8.6-10.3); Carbon Dioxide 26 mEq/L (23-29); Chloride 103 mEq/L (98-107); Globulin 4.6 g/dL (2.4-3.5); Glucose 184 mg/dL (70-105); Osmolality,Calculated 286 (280-300); Potassium 3.7 mEq/L (3.5-5.1); Sodium 136 mEq/L (136-145); Total Protein 7.1 g/dL (6.4-8.9); eGFR For African Americans > 60 (> 60); eGFR For Non-African Americans > 60 (> 60)
[2019-10-03 10:33] VITALS: BP 144/84
== END 2019-10-03 13:12 | disposition home or self-care (01) | DRG 279 ==
LOC: 3BNU
PROVIDERS: ADMIT Family Medicine; ATTEND Family Medicine